=== PATIENT | female | born 1960 ===

== ENCOUNTER 2018-02-23 13:46 | Outpatient (CLI) | payer OTHER ==
[~2018-02-23] VITALS: Ht 160 cm; Wt 98.4 kg
== END 2018-02-23 17:00 | disposition home or self-care (01) ==
LOC: OFIC 805 13:46
DX: H60.8X2 Other otitis externa, left ear (principal); H91.8X2 Other specified hearing loss, left ear

== ENCOUNTER 2018-03-08 11:34 | Outpatient (CLI) | payer OTHER ==
[~2018-03-08] VITALS: Ht 152.4 cm; Wt 98.4 kg
== END 2018-03-08 14:43 | disposition home or self-care (01) ==
LOC: OFIC 805 11:34
DX: H60.8X2 Other otitis externa, left ear (principal); H91.8X2 Other specified hearing loss, left ear; H61.22 Impacted cerumen, left ear

== ENCOUNTER 2018-03-15 10:04 | Outpatient (CLI) | payer OTHER ==
[~2018-03-15] VITALS: Ht 152.4 cm; Wt 98.4 kg
== END 2018-03-15 10:20 | disposition home or self-care (01) ==
LOC: OFIC 805 10:04
DX: H90.42 Sensorineural hearing loss, unilateral, left ear, with unrestricted hearing on the contralateral side (principal); H60.592 Other noninfective acute otitis externa, left ear